=== PATIENT | male | born 1960 | race Caucasian/White ===

== ENCOUNTER 2020-11-15 09:01 | Outpatient (CLI) | payer MEDICARE, SELFPAY ==
--- NOTE | ~2020-11-15 | CT_ITS ---
EXAMINATION: CT abdomen pelvis wo/w con DATE: 11/15/2020 10:04 INDICATION: Gross hematuria TECHNIQUE: Computed tomography (CT) of the abdomen and pelvis was performed without and subsequently with 130 cc Omnipaque 350 intravenous contrast. Automated exposure control and iterative reconstructi on technique were employed. Exam dose: 2683.00 mGy-cm total exam DLP. COMPARISON: 11/[address] examination with IV contrast material FINDINGS: There is mild discoid atelectasis and/or scarring at the lung bases. Normal heart size. No pericardial or pleural effusion. The liver, gallbladder, bile ducts, spleen, pancreas, pancreatic duct and adrenal glands are unremark able. Gallbladder ultrasound would be more sensitive for detection of sludge or stones. No gallbladde r wall thickening or pericholecystic fluid or fat stranding. There are 2 pinpoint nonobstructing left renal calculi 8 mm medial lower pole right renal probable cyst. No other renal space occupying mass lesion is evide nt. No ureteral calculus or hydroureteronephrosis. There is moderate diffuse thickening of the urinary bladder wall. No intraluminal mass lesion of the urinary bladder is evident. Fat-containing left inguinal hernia. Normal appendix. There are numerous diverticula of the sigmoid and to a lesser extent descending colon; no CT evidence of diverticulitis. No bowel obstruction, bowel wall thickening, pneumatosis or intraperitoneal free air. There is atelectatic calcification of the abdominal aorta and iliac arteries but no aneurysm. No intr aperitoneal or retroperitoneal or pelvic mass lesion or adenopathy or ascites. Diffuse idiopathic skeletal hyperostosis of the lower thoracic spine. There are degenerative changes of the lumbar spine including moderately severe degenerative disease at L3-4 and degenerative change at the apophyseal joints. No suspicious osteolytic or osteoblastic lesions are noted. IMPRESSION: 2 pinpoint nonobstructing left renal calculi 8 mm probable lower pole right renal cyst Diverticulosis of the colon; no CT evidence of diverticulitis Fat-containing left inguinal hernia Reviewed, dictated and finalized at [facility]. Reviewed, dictated and finalized at [facility].
--- NOTE | ~2020-11-15 | XR_ITS ---
EXAMINATION: XR abdomen/kub 1V INDICATION: Gross hematuria TECHNIQUE: Supine views of the abdomen were obtained on 2 radiographs. COMPARISON: None FINDINGS: Contrast from earlier CT partially opacifies the urinary tract. There is no hydronephrosis or hydroureter. No urolithiasis is identified. The lung bases are clear. A moderate volume of colonic stool is present. There is mild osteoarthritis of the hips. IMPRESSION: 1. No radiographic correlate for the patient's symptoms. Reviewed, dictated and finalized at location [facility].
[2020-11-15 09:46] LABS: Estimated Glomerular Filt Rate > 60
== END 2020-11-15 09:02 | disposition home or self-care (01) ==
LOC: ANHIMG 09:08
PROVIDERS: PCP Internal Medicine; Visit Provider Urology
DX: R31.0 Gross hematuria (principal); N20.0 Calculus of kidney; K57.30 Diverticulosis of large intestine without perforation or abscess without bleeding; K40.90 Unilateral inguinal hernia, without obstruction or gangrene, not specified as recurrent
CPT/HCPCS: 74018; 74178; Q9967

== ENCOUNTER 2020-12-21 08:03 | Outpatient (CLI) | payer MEDICARE, SELFPAY ==
--- NOTE | 2020-12-21 08:30 | ECG_ITS ---
Measurements Intervals [place] Rate: 101 P: 75 PA: 141 QRS: 2 QRSD: 95 T: 43 QT: 323 QTc: 419 Interpretive Statements SINUS TACHYCARDIA INCOMPLETE RIGHT BUNDLE BRANCH BLOCK BASELINE ARTIFACT- V6 ABNORMAL ECG Electronically Signed On 12-21-2020 8:28:11 CDT by Romario Vincent D.O.
[2020-12-21 08:49] LABS: Basophils Absolute Auto 0.1 K/mm3 (0.0-0.1); Basophils Percent Auto 1.5 % (0.2-1.2); Eosinophils Absolute Auto 0.1 K/mm3 (0-0.3); Eosinophils Percent Auto 1.7 % (0-4.4); Hematocrit 44.3 % (42.0-52.0); Hemoglobin 14.2 g/dL (14.0-18.0); Immature Granulocyte Absolute 0.02 K/mm3 (0.00-0.031); Immature Granulocyte Percent A 0.3 % (0-0.5); Lymphocytes Absolute Auto 1.81 K/mm3 (0.9-3.2); Lymphocytes Percent Auto 30.8 % (18.3-44.2); Mean Corpuscular HGB Conc 32.1 g/dl (32-36); Mean Corpuscular Volume 84.2 fl (80-100); Monocytes Absolute Auto 0.5 K/mm3 (0.1-0.6); Neutrophils Absolute Auto 3.4 K/mm3 (1.3-6.7); Neutrophils Percent Auto 57.7 % (45.5-73.1); Platelet Count Result 392 k/mm3 (150-375); Red Blood Count 5.26 M/mm3 (4.6-6.20); Red Cell Distribution Width 17.8 % (11.5-14.5); White Blood Count 5.9 K/mm3 (4.5-10.0)
[2020-12-21 08:58] LABS: INR 0.9; Prothrombin Time 12.5 Seconds (11.1-14.7)
[2020-12-21 09:04] LABS: Anion Gap 14 mmol/L (8-16); Blood Urea Nitrogen 10 mg/dL (9-20); Calcium 9.8 mg/dL (8.4-10.2); Carbon Dioxide 24 mmol/L (22-30); Chloride 101 mmol/L (98-107); Estimated Glomerular Filt Rate > 60; Glucose 87 mg/dL (65-110); Potassium 4.3 mmol/L (3.4-5.0); Sodium 139 mmol/L (137-145)
== END 2020-12-21 08:04 | disposition home or self-care (01) ==
LOC: ANHSURGERY 08:06
PROVIDERS: PCP Internal Medicine; Visit Provider Urology
DX: Z01.812 Encounter for preprocedural laboratory examination (principal); E11.9 Type 2 diabetes mellitus without complications; R94.31 Abnormal electrocardiogram [ECG] [EKG]; R00.0 Tachycardia, unspecified; I45.10 Unspecified right bundle-branch block
CPT/HCPCS: 36415; 80048; 85025; 85610; 85730; 87086; 87088; 93005

== ENCOUNTER 2020-12-26 01:16 | Day surgery (SDC) | payer MEDICARE, SELFPAY ==
[2020-12-20 09:51] VITALS: BMI 31.6
[2020-12-26] VITALS (9 sets, daily range): BP systolic 106–138; BP diastolic 72–85; PULSE 85–98; RESP 12–18; TEMP 36.2–36.9; O2SAT 95–98
--- NOTE | ~2020-12-26 | XR_ITS ---
EXAMINATION: XR abdomen/kub 1V EXAM DATE: 12/26/2020 10:09 INDICATION: Urethral dilation. TECHNIQUE: Frontal projection of the lower abdomen for interpretation obtained portably during urethr al dilation. There is no prior study for comparison. FINDINGS: No suspicious pelvic calcifications. Some hip osteoarthritis. Nonobstructive lower abdomin al bowel gas pattern. IMPRESSION: Unremarkable XR abdomen/kub 1V exam. Reviewed, dictated and finalized at location [facility].
--- NOTE | 2020-12-26 07:22 | P.PNAN_ITS ---
Anes - Initial Pre Proc Eval Procedure: Operation Date: 12/26/20 10:30 Proposed Procedures p Cystoscopy, Urethral Dilatation, Meatotomy - Farrukh Buitrago MD s Possible Trans Urethral Resection Bladder Tumor - Farrukh Buitrago MD Date/Time: 12/26/20 07:22 Surgeon: Farrukh Buitrago MD Pre Op Diagnosis: Urethral Medial Stenosis, Gross Hematuria Patient Data Age: 59 Gender: M Height: 1.8 m Weight: 102.7 kg Allergies Allergy/AdvReac Type Severity Reaction Status Date / Time No Known Allergies Allergy Verified 12/20/20 09:46 Home Medications Medication Instructions Recorded Confirmed Type budesonide-formoterol [Symbicort] 2 inh INHALATION BID 12/20/20 12/20/20 History cyclobenzaprine 10 mg PO BID 12/20/20 12/20/20 History gemfibrozil 600 mg PO BID 12/20/20 12/20/20 History metformin 1,000 mg PO BID 12/20/20 12/20/20 History omeprazole 40 mg PO DAILY 12/20/20 12/20/20 History testosterone cypionate 200 mg SUBCUT WEEKLY 12/20/20 12/20/20 History venlafaxine 150 mg PO BID 12/20/20 12/20/20 History Patient hx anesthesia problems: none Family hx anesthesia problems: none [facility] Past Medical History Medical History (Updated 12/26/20 @ 07:24 by Aguila Layton MD) COPD (chronic obstructive pulmonary disease) Depression Diabetes Myasthenia gravis FLOR (obstructive sleep apnea) Osteoarthritis Social History Social History Smoking packs per day: 1 Smoking cigarettes per day: 20.0 Years smoked: 40 Smoking pack-years: 40.00 Smoking status: Former smoker Smoking end date: 12/20/18 Alcohol intake: current Substance use: current Substance use type: marijuana Other substance usage details: Occasional use, not every day. Living arrangements: with family Spiritual care concerns: No Anes - Eval Final PreProcedure Day of Procedure 12/26/20 07:22 Patient weight: obese Heart: regular rate and rhythm Lungs: clear to auscultation and normal air movement Airway: Mallampati scale class II Neurological: alert and oriented Last oral intake: >/= 8 hours ASA classification: III Emergent: no Anesthetic plan: proceed Anesthesia type and monitoring: general LMA Informed Consent: The patient's anesthetic plan and its attendant risks and benefits were discussed with the patient/family/POA. Questions were solicited and answers provided to the satisfaction of the patient/family/POA.
[2020-12-26] MEDS: LACTATED RINGERS 1,000 ML 30 ML IV CONT (09:00)
[2020-12-26 09:11] LABS: Glucose Point of Care 131 mg/dl (65-105)
--- NOTE | 2020-12-26 09:28 | WPDHPUPDATE1 ---
History and Physical Update Update Date/Time: 12/26/20 09:28 History and Physical has been reviewed, including an updated exam of the patient. There are NO changes in the patient's condition. Risks, benefits, and alternatives have been discussed and questions answered. Patient agrees to proceed with procedure.
[2020-12-26] MEDS: ceFAZolin 2 GM/D5W 50 ML 2 GM/50 ML BAG IVPB (09:44)
--- NOTE | 2020-12-26 10:08 | P.OP_ITS ---
Procedure Note - Detailed Date of Procedure 12/26/20 Pre-op Diagnosis Urethral Medial Stenosis, Gross Hematuria Post-op Diagnosis same Procedure Performed Dilation meatal stenosis, cystoscopy Surgeon Farrukh Buitrago MD Anesthesia general Description of Procedure Patient is taken to the operative suite correctly identified. Once anesthesia was obtained was placed in the low-lying dorsal lithotomy position and prepped draped usual sterile fashion. Inspection of the meatus reveals that there is a pinhole opening. We placed a lubricated mosquito into the opening and just gently . Surprisingly things just opened up extremely easily without any evidence of bleeding. We then placed a 19 Setswana scope into the bladder under direct vision. There were areas of slight narrowing along the course of the urethra but we were able to easily pass the scope. Prostate had minimal lateral lobe obstruction. The bladder itself had 1+ trabeculation without any evidence of tumors. A 22 Setswana scope was then also passed again without difficulty. At this point no further dilatation was needed. 2% viscous lidocaine was inserted into the urethra and patient is taken recovery stable condition. Will have patient follow-up in the office in 3-4 weeks time to see how he is doing regarding his voiding. Drains No Packing No Pathology none sent Complications No immediate complications Condition stable Disposition PACU
[2020-12-26] MEDS: LIDOCAINE HCL 2% GEL UROJET 10 ML PKG MUCOUS MEM (10:14)
[2020-12-26 10:31] LABS: Glucose Point of Care 123 mg/dl (65-105)
--- NOTE | 2020-12-26 11:38 | SUR.PHASEII ---
PT ABLE TO VOID SMALL AMOUNTS AT A TIME, DOES HAVE FREQUENCY, EDUCATION PROVIDED.
== END 2020-12-26 11:45 | disposition home or self-care (01) ==
PROVIDERS: PCP Internal Medicine; Visit Provider Urology
PROC: 0T7D8ZZ Dilation of Urethra, Via Natural or Artificial Opening Endoscopic (ICD-10-PCS; CPT 52281; principal; 2020-12-26 10:30)
DX: N35.911 Unspecified urethral stricture, male, meatal (principal); R31.0 Gross hematuria; J44.9 Chronic obstructive pulmonary disease, unspecified; E11.9 Type 2 diabetes mellitus without complications; G47.33 Obstructive sleep apnea (adult) (pediatric); M19.90 Unspecified osteoarthritis, unspecified site; G70.00 Myasthenia gravis without (acute) exacerbation; F32.9 Major depressive disorder, single episode, unspecified; Z79.84 Long term (current) use of oral hypoglycemic drugs; Z87.891 Personal history of nicotine dependence; F12.90 Cannabis use, unspecified, uncomplicated; E66.9 Obesity, unspecified; Z68.30 Body mass index [BMI] 30.0-30.9, adult
CPT/HCPCS: 52281; 36415; 74018; 80048; 82948; 85025; 85610; 85730; 87086; 87088; 93005; A9270; J0690; J2250; J2405; J2704; J3010; J7120

== ENCOUNTER 2022-05-13 02:42 | Day surgery (SDC) | payer MEDICARE, SELFPAY ==
[2022-04-29 10:03] VITALS: BMI 30.6
--- NOTE | 2022-05-10 15:08 | PM.HPGS ---
History of Present Illness History of Present Illness Consent: Risks, benefits, and alternatives have been discussed and questions answered. Patient agrees to proceed with procedure. Chief complaint: positive cologuard Narrative: Jatinder Ny is a 61 year old male Referred for colon cancer screening. A Cologuard test was positive Review of Systems Review of Systems: All systems reviewed & are unremarkable except as noted in HPI and below PMFSH Past Medical History Medical History COPD (chronic obstructive pulmonary disease) Depression Diabetes Myasthenia gravis FLOR (obstructive sleep apnea) Osteoarthritis Social History Social History Smoking packs per day: 2 Smoking cigarettes per day: 40.0 Years smoked: 44 Smoking pack-years: 88.00 Smoking status: Former smoker Tobacco type: cigarettes Smoking end date: 12/20/18 Alcohol intake: current Drinks per week: 2 Substance use: current Substance use type: does not use Other substance usage details: Occasional use, not every day. Living arrangements: with family Spiritual care concerns: No Meds Home Medications and Allergies Home Medications Medication Instructions Recorded Confirmed Type budesonide-formoterol HFA 80 2 inh inhalation BID 12/20/20 04/29/22 History mcg-4.5 mcg/actuation aerosol inhaler (Symbicort) gemfibrozil 600 mg tablet 600 mg PO BID 12/20/20 04/29/22 History metformin 1,000 mg tablet 1,000 mg PO BID 12/20/20 04/29/22 History omeprazole 40 mg capsule,delayed 40 mg PO DAILY 12/20/20 04/29/22 History release testosterone cypionate 200 mg/mL 200 mg subcut WEEKLY 12/20/20 04/29/22 History intramuscular oil albuterol sulfate 90 mcg/actuation 90 mcg inhalation DAILY PRN 04/29/22 04/29/22 History aerosol inhaler Shortness Of Breath cyanocobalamin (vitamin B-12) 1,000 mcg IM MONTHLY 04/29/22 04/29/22 History 1,000 mcg/mL injection solution ferrous sulfate 325 mg (65 mg 325 mg PO BID 04/29/22 04/29/22 History iron) tablet fluoxetine 10 mg capsule 10 mg PO DAILY 04/29/22 04/29/22 History zolpidem 10 mg tablet 10 mg PO DAILY 04/29/22 04/29/22 History Allergies Allergy/AdvReac Type Severity Reaction Status Date / Time No Known Allergies Allergy Verified 04/29/22 09:55 Exam Const: General: alert Orientation/consciousness: patient oriented x3 Resp: Auscultation: clear to auscultation bilaterally Cardio: Rhythm: regular rhythm GI: GI Palp: Yes Soft to palpation and No Tenderness to palpation present (GI) Neuro: General: patient oriented x3 Assessment and Plan Assessment and plan (1) Colon cancer screening: Code(s): Z12.11 - Encounter for screening for malignant neoplasm of colon Status: Acute Assessment and Plan: Colonoscopy with possible biopsy or polypectomy or cautery or injection of substances.
[2022-05-13 06:50] VITALS: BP 113/88; PULSE 97; RESP 18; TEMP 35.9; O2SAT 97; BMI 29.5
[2022-05-13] MEDS: LACTATED RINGERS 1,000 ML 150 ML IV CONT (07:07)
[2022-05-13 07:08] LABS: Glucose Point of Care 139 mg/dl (65-105)
--- NOTE | 2022-05-13 07:34 | WPDANESEPPF ---
Anes - Initial Pre Proc Eval Procedure: Operation Date: 05/13/22 08:00 Proposed Procedures p Colonoscopy - Yovany Jeter MD Date/Time: 05/13/22 07:34 Surgeon: Yovany Jeter MD Pre Op Diagnosis: positive cologuard Patient Data Age: 61 Gender: M Height: 1.8 m Weight: 96.1 kg Last Vital Signs Temp 96.7 F L 05/13/22 06:50 Pulse 97 05/13/22 06:50 Resp 18 05/13/22 06:50 BP 113/88 05/13/22 06:50 Pulse Ox 97 05/13/22 06:50 O2 Del Method Room Air 05/13/22 06:50 Allergies Allergy/AdvReac Type Severity Reaction Status Date / Time No Known Allergies Allergy Verified 04/29/22 09:55 Home Medications Medication Instructions Recorded Confirmed Type budesonide-formoterol HFA 80 2 inh inhalation BID 12/20/20 04/29/22 History mcg-4.5 mcg/actuation aerosol inhaler (Symbicort) gemfibrozil 600 mg tablet 600 mg PO BID 12/20/20 04/29/22 History metformin 1,000 mg tablet 1,000 mg PO BID 12/20/20 04/29/22 History omeprazole 40 mg capsule,delayed 40 mg PO DAILY 12/20/20 04/29/22 History release testosterone cypionate 200 mg/mL 200 mg subcut WEEKLY 12/20/20 04/29/22 History intramuscular oil albuterol sulfate 90 mcg/actuation 90 mcg inhalation DAILY PRN 04/29/22 04/29/22 History aerosol inhaler Shortness Of Breath cyanocobalamin (vitamin B-12) 1,000 mcg IM MONTHLY 04/29/22 04/29/22 History 1,000 mcg/mL injection solution ferrous sulfate 325 mg (65 mg 325 mg PO BID 04/29/22 04/29/22 History iron) tablet fluoxetine 10 mg capsule 10 mg PO DAILY 04/29/22 04/29/22 History zolpidem 10 mg tablet 10 mg PO DAILY 04/29/22 04/29/22 History Laboratory Tests 05/13/22 07:02 POC Capillary Glucose 139 mg/dl H mg/dl (65-105) Patient hx anesthesia problems: none Family hx anesthesia problems: none Results Review: All pre-operative results and documents have been reviewed as part of the pre-operative evaluation. [facility] Past Medical History Medical History COPD (chronic obstructive pulmonary disease) Depression Diabetes Myasthenia gravis FLOR (obstructive sleep apnea) Osteoarthritis Social History Social History Smoking packs per day: 2 Smoking cigarettes per day: 40.0 Years smoked: 44 Smoking pack-years: 88.00 Smoking status: Former smoker Tobacco type: cigarettes Smoking end date: 12/20/18 Alcohol intake: current Drinks per week: 2 Substance use: current Substance use type: does not use Other substance usage details: Occasional use, not every day. Living arrangements: with family Spiritual care concerns: No Anes - Eval Final PreProcedure Day of Procedure 05/13/22 07:34 Patient weight: obese Heart: regular rate and rhythm Lungs: clear to auscultation Airway: Mallampati scale class II Neurological: alert and oriented Last oral intake: >/= 8 hours ASA classification: III Emergent: no Anesthetic plan: proceed Anesthesia type and monitoring: general GIVS and standard monitoring Results Review: All pre-operative results and documents have been reviewed as part of the pre-operative evaluation. Informed Consent: The patient's anesthetic plan and its attendant risks and benefits were discussed with the patient/family/POA. Questions were solicited and answers provided to the satisfaction of the patient/family/POA.
[2022-05-13 08:08] VITALS: BP 111/63; PULSE 95; RESP 20; O2SAT 92
[2022-05-13 08:18] VITALS: BP 113/78; PULSE 89; RESP 17; O2SAT 97
[2022-05-13 08:28] VITALS: BP 123/77; PULSE 87; RESP 17; O2SAT 95
== END 2022-05-13 08:42 | disposition home or self-care (01) ==
PROVIDERS: PCP Internal Medicine; Visit Provider Internal Medicine Gastroenterology
PROC: 0DJD8ZZ Inspection of Lower Intestinal Tract, Via Natural or Artificial Opening Endoscopic (ICD-10-PCS; CPT 45378; principal; 2022-05-13 08:00)
DX: Z12.11 Encounter for screening for malignant neoplasm of colon (principal); K62.1 Rectal polyp; K57.30 Diverticulosis of large intestine without perforation or abscess without bleeding; R19.5 Other fecal abnormalities; J44.9 Chronic obstructive pulmonary disease, unspecified; E11.9 Type 2 diabetes mellitus without complications; G47.33 Obstructive sleep apnea (adult) (pediatric); F32.A Depression, unspecified; Z87.891 Personal history of nicotine dependence; E66.9 Obesity, unspecified; Z68.29 Body mass index [BMI] 29.0-29.9, adult; Z79.51 Long term (current) use of inhaled steroids; Z79.84 Long term (current) use of oral hypoglycemic drugs; Z79.890 Hormone replacement therapy
CPT/HCPCS: 45385; 82948; 88305; J2704; J7120